=== PATIENT | male | born 1980 | race Two or more races ===

== ENCOUNTER 2019-05-07 20:02 | Emergency (ER) | payer MEDICAID, OTHER ==
[~2019-05-07] VITALS: Ht 175.3 cm; Wt 81.6 kg
--- NOTE | 2019-05-07 20:11 | NUR ---
BIBFAMILY C/O L UPPER EXT PAIN S/P FALL WHILE PLAYING BASKETBALL +SKIN INTACT, +LIMITED ROM, -KO. UNABLE TO MOVE EXTREMITY FROM RAISED POSITION. AOX4, AMBULATORY, VSS, RR EVEN AND UNLABORED ON RA. ON MONITOR, MADE COMFORTABLE, READY FOR EVAL.
[2019-05-07] MEDS ORDERED: ONDANSETRON HCL/PF 4 MG/2 ML VIAL IVP ONE ×2 (20:30→22:00)
[2019-05-07] MEDS ORDERED: ONDANSETRON HCL/PF 4 MG/2 ML VIAL ONE ×2 (20:30→21:39)
[2019-05-07] MEDS ORDERED: HYDROMORPHONE 1 MG/1 ML DISP.SYRIN ONE (20:30)
[2019-05-07] MEDS ORDERED: HYDROMORPHONE INJ 2 MG/ML DISP.SYRIN IV ONE (20:30)
[2019-05-07] MEDS ORDERED: MIDAZOLAM HCL 5 MG/5ML VIAL ONE ×2 (20:42→21:03)
[2019-05-07] MEDS ORDERED: FENTANYL PF 100MCG/2ML AMPUL ONE (20:42)
--- NOTE | 2019-05-07 20:55 | NUR ---
DR BAUMANN AND TEAM AT BEDSIDE FOR SHOULDER REDUCTION UNDER PROCEDURAL SEDATION.
[2019-05-07] MEDS ORDERED: FENTANYL PF 100MCG/2ML AMPUL IV ONE (21:00)
[2019-05-07] MEDS ORDERED: MIDAZOLAM HCL 2 MG/2ML VIAL IV ONE (21:00)
[2019-05-07] MEDS ORDERED: PROPOFOL 20 ML IV ONE (21:04)
[2019-05-07] MEDS ORDERED: PROPOFOL 200 MG/20 ML VIAL IV ONE (21:30)
--- NOTE | 2019-05-07 22:14 | NUR ---
PT RECOVERING WELL. STILL HAS SOME NAUSEA/VOMITING. MD NOTIFIED.
[2019-05-07] MEDS ORDERED: METOCLOPRAMIDE HCL 10 MG/2 ML VIAL ONE (22:16)
[2019-05-07] MEDS ORDERED: METOCLOPRAMIDE HCL 10 MG/2 ML VIAL IV ONE (22:30)
--- NOTE | 2019-05-07 22:45 | NUR ---
PT AMBULATES WITH STEADY GAIT. ABLE TO TOLERATE PO FLUIDS. STABLE FOR DISCHARGE.
--- NOTE | 2019-05-07 23:00 | NUR ---
Patient discharged to home in stable condition. Written and verbal after care instructions given. Patient verbalizes understanding of instruction.IV removed. Catheter intact and site benign. Pressure and 4x4 applied to site. No bleeding noted.
[2019-05-07 23:08] VITALS: BP 120/76
== END 2019-05-07 23:00 | disposition home or self-care (01) ==
LOC: ER 20:04
DX: S43.015A Anterior dislocation of left humerus, initial encounter (principal); S43.035A Inferior dislocation of left humerus, initial encounter; J45.909 Unspecified asthma, uncomplicated; Z88.6 Allergy status to analgesic agent; Z60.2 Problems related to living alone; W18.39XA Other fall on same level, initial encounter; Y93.67 Activity, basketball; Y92.39 Other specified sports and athletic area as the place of occurrence of the external cause; Y99.8 Other external cause status
CPT/HCPCS: 23650; 73030 ×2; 96374; 96375; 96376; 99152; 99285; J1170; J2250 ×2; J2405 ×2; J2704; J2765; J3010; G0500